=== PATIENT | male | born 1995 | race Caucasian/White ===

== ENCOUNTER 2020-09-26 10:57 | Emergency (ER) | payer MEDICAID, SELFPAY ==
[2020-09-26 11:00] VITALS: BP 159/116; PULSE 87; RESP 16; TEMP 36.6; O2SAT 97; BMI 35.2
--- NOTE | 2020-09-26 11:09 | EDS_ITS ---
HPI History of Present Illness Chief Complaint: Male Pain/Injury Narrative Narrative: Patient presenting with discharge from his penis. He states he is sexually active with more than 1 female and is not using protection. He states his last time having sex was about a week and a half ago. He denies any rashes. He has no systemic signs or symptoms. [facility] Home Medications NK 09/26/20 [History Last Taken Unknown] doxycycline hyclate 100 mg PO BID #14 tab 09/26/20 [Rx Last Taken Unknown] Allergy/AdvReac Type Severity Reaction Status Date / Time diphenhydramine Allergy PT UNSURE Verified 09/26/20 10:59 [From Benadryl] OF REACTION morphine Allergy PT UNSURE Verified 09/26/20 10:59 OF REACTION mussels Allergy PT UNSURE Verified 09/26/20 10:59 OF REACTION oxycodone Allergy PT UNSURE Verified 09/26/20 10:59 OF REACTION phenytoin [From Dilantin] Allergy PT UNSURE Verified 09/26/20 10:59 OF REACTION Social History Smoking Status: Current every day smoker tobacco type: cigarettes ROS ROS ED Constitutional Constitutional ED: Denies chills, fever(s) or subjective Eyes Eyes: Denies blurry vision or change in vision ENT ENT ED: Denies rhinorrhea or sore throat Cardiovascular Cardiovascular: Denies chest pain or palpitations Respiratory/Chest Respiratory/Chest: Denies cough or dyspnea Gastrointestinal Gastrointestinal: Denies abdominal pain, nausea or vomiting Genitourinary Genitourinary ED: Reports dysuria and other Details: Urethral drainage Musculoskeletal Musculoskeletal: Denies arthralgias or myalgias Integumentary Denies abscess or rash Neurologic Neurologic: Denies headache(s) or paresthesias Psychiatric Psychiatric: Reports anxiety; Denies depression EXAM Physical Exam Const Vital Signs: 09/26/20 11:00 Temperature 97.8 F Temperature Source Temporal Pulse Rate 87 Respiratory Rate 16 Blood Pressure 159/116 H Blood Pressure Mean 130 Pulse Ox 97 Oxygen Delivery Method Room Air Positive well nourished General Appearance ED: NAD HEENT normocephalic and atraumatic Resp normal respiratory effort Cardio regular rate and regular rhythm Penis: normal penis and circumcised Meatus: meatal discharge; Negative for blood at meatus Scrotum: testes descended bilaterally Testes: testicular lie normal Neuro oriented x3 Sensorium / Orientation: alert Psych mental status grossly normal Mood & Affect: anxious MDM MDM MDM Narrative Medical decision making narrative: Patient presenting with urethral discharge. He did have unprotected sex about a week and a half ago. He has no systemic signs or symptoms. On exam he does have a white purulent discharge. Patient did give a urine sample and there does appear to be inflammatory cells in there however I do not think he needs to be treated for UTI. Patient does not want to wait for the results and will prefer just to be treated. He was given Rocephin 500 mg IM x1 and doxycycline he will twice daily for 7 days. Patient given return precautions. Patient counseled to abstain from sexual intercourse until he is symptom-free and to use condoms. Impression: 1. Urethritis Lab Data Labs: Laboratory Results - last 24 hr 09/26/20 11:10 Urine Color Straw Urine Clarity Cloudy Urine pH 6.0 Ur Specific [place] 1.025 Urine Protein 30 H Urine Glucose (UA) Normal Urine Ketones Negative Urine Occult Blood 25 H Urine Nitrite Negative Urine Bilirubin Negative Urine Urobilinogen 1 H Ur Leukocyte Esterase 500 H Urine RBC 0-5 SEEN Urine WBC >100 SEEN Ur Squamous Epith Cells 0-5 SEEN Urine Bacteria RARE Urine Mucus 0 SEEN Discharge Plan Triage Chief Complaint: Male Pain/Injury ED Provider: Asad Polk Dx/Rx/DC Orders Instructions: ED STI Male Treated Prescriptions: New doxycycline hyclate 100 mg tablet 100 mg PO BID Qty: 14 RF: 0 No Action NK RF: 0 Primary Care Provider: Care Physician,No Primary Referrals: Christine Smith DO [STAFF PHYSICIAN] - As Needed Care Physician,No Primary [Primary Care Provider] - Disposition Disposition: Home, Self Care
[2020-09-26 11:16] LABS: Mucous, Urine 0 SEEN /hpf (<or=2+)
[2020-09-26 11:22] LABS: Color, Urine Straw (Yellow); Glucose, Dipstick Normal (Normal); Ketone-Dipstick Negative (Negative); Leukocyte Esterase-Dipstick 500 /ul (Negative); Nitrite-Dipstick Negative (Negative); Occult Blood-Urine 25 /ul (Negative); Protein-Dipstick 30 mg/dl (Negative); Specific Gravity, Urine 1.025 (1.002-1.030); Urine Bilirubin Dipstick Negative (Negative); Urine Clarity Cloudy (Clear); Urine Urobilinogen 1 mg/dl (Normal)
[2020-09-26 11:46] LABS: Red Blood Cells-Urine 0-5 SEEN /hpf (0-5); White Blood Cells >100 SEEN /hpf (0-5)
[2020-09-26 11:47] LABS: Bacteria RARE /hpf (None Seen); Squamous Epithelial Cells - UA 0-5 SEEN /hpf (0-5)
[2020-09-26] MEDS: Doxycycline 100 MG CAPSULE PO (12:03)
[2020-09-26] MEDS: Ceftriaxone 500 MG Vial IM (12:23)
[2020-09-26 13:01] LABS: Chlamydia Trachomatis by PCR Negative (Negative); Neisserai gonorrhoeae by PCR Positive (Negative); Probe Check PASS
== END 2020-09-26 12:27 | disposition home or self-care (01) ==
PROVIDERS: Emergency Provider Student in an Organized Health Care Education/Training Program
DX: N34.2 Other urethritis (principal); F17.210 Nicotine dependence, cigarettes, uncomplicated
CPT/HCPCS: 81001; 87491; 87591; 96372; 99283